=== PATIENT | female | born 1960 | race Caucasian/White ===

== ENCOUNTER 2023-05-07 08:15 | Outpatient (CLI) | payer BC, SELFPAY | END 2023-05-07 08:16 | disposition home or self-care (01) | PROVIDERS: PCP Internal Medicine; Referring Provider Internal Medicine; Visit Provider Internal Medicine | DX: Z01.419 Encounter for gynecological examination (general) (routine) without abnormal findings (principal); K21.9 Gastro-esophageal reflux disease without esophagitis; Z13.6 Encounter for screening for cardiovascular disorders | CPT/HCPCS: 80053; 80061 ==

== ENCOUNTER 2023-06-28 01:18 | Emergency (ER) | payer BC, SELFPAY ==
[2023-06-28 01:30] VITALS: BP 124/86; PULSE 126; RESP 18; TEMP 36.6; O2SAT 99; BMI 31.3
--- NOTE | 2023-06-28 01:38 | ED_ITS ---
HPI - General Adult General Chief complaint: Unspecified Complaint, Adult Stated complaint: body aches, fever Time Seen by Provider: 06/28/23 01:38 History of Present Illness HPI narrative: 2d body aches, cold s/s, thinks she has a fever. seen kaley for achilles tendonitis last week and is on prednisone 62-year-old woman presenting to the emergency depart with concern of body aches and chills. This having some soreness under bilateral anterior ribs and then into back. Underlying history of fibromyalgia. Over the last couple of days has developed some body aches and some chills. Has not measured a fever but says that thought she was warm. Little over 2 days ago was bending over gardening and kept feeling rather lightheaded. Does not report palpitations or irregular heartbeats. Has been treating with ibuprofen. Not urinating very frequently she says that noting that typically would be urinating very frequently as she drinks lot of water. No dysuria. Says that ?I have had lot of urinary tract infections this does not hurt? notes her to be flushed in her face I agree. Related Data Home Medications Medication Instructions Recorded Confirmed betamethasone, augmented 0.05 % topical 04/25/23 06/19/23 topical ointment cyclobenzaprine 10 mg tablet 10 mg PO .PRN 04/25/23 06/19/23 loratadine 10 mg tablet (Allergy 10 mg PO QDAY 04/25/23 06/19/23 Relief (loratadine)) meloxicam 15 mg tablet 15 mg PO DAILY 04/25/23 06/19/23 Previous Rx's Medication Instructions Recorded estradiol 10 mcg vaginal tablet 10 mcg vaginal .TIW #90 tabs 04/25/23 lisinopril 10 mg tablet 10 mg PO DAILY #90 tabs 04/25/23 pantoprazole 40 mg tablet,delayed 40 mg PO QDAY #90 tabs 04/25/23 release (Protonix) amitriptyline 25 mg tablet 25 mg PO QHS #90 tabs 07/11/23 Allergies Allergy/AdvReac Type Severity Reaction Status Date / Time latex Allergy thrush Verified 06/19/23 09:38 Review of Systems Status of ROS: Reports: 6 or more systems reviewed and unremarkable except as noted in History and below [facility] Medical History Achilles tendinitis ?M76.60 - Achilles tendinitis, unspecified leg (ICD-10) GERD (gastroesophageal reflux disease) ?K21.9 - Gastro-esophageal reflux disease without esophagitis (ICD-10) Fibromyalgia ?M79.7 - Fibromyalgia (ICD-10) Post menopausal problems ?N95.9 - Unspecified menopausal and perimenopausal disorder (ICD-10) Social History What is your current living situation?: I presently have a place to live Problems where you live: no known problems In the past 12 months, utilities in danger of being shut off: no In past 12 months, lack of transportation kept you from medical appts, meetings, work, or getting things needed for daily living: no In the past 12 mos, have been you worried that your food would run out before you had money to buy more?: never true In the past 12 mos, the food you bought just didn't last and you didn't have money to buy more?: never true Smoking Status: Never smoker How often do you have a drink containing alcohol: never AUDIT-C Alcohol total score: 0 Non-prescribed substance use: denies use How often does anyone, including family, friends and others, physically hurt you : never How often does anyone, including family, friends and others, insult or talk down to you: never How often does anyone, including family, friends and others, threaten you with harm: never How often does anyone, including family, friends and others, scream or curse at you: never Little interest or pleasure in doing things: not at all Feeling down, depressed, or hopeless: not at all Exam Narrative: Exam Narrative: Generally flushed in her face. Skin otherwise warm and dry. Seems a little tired. Sounds congested in the nasopharynx. Right TM seems a little full of fluid point of erythema centrally. Left TM unremarkable. Sore to palpation of the maxillary sinuses. Extraocular movements are full without pain. Extremities well perfused without edema. Heart in elevated rate and regular rhythm. Abdomen is soft nontender. Lungs are clear. Const: Vital Signs, click to edit/add: Vital Signs - 24 hr 06/28/23 01:30 Temperature 97.8 F Pulse Rate [Pulse Oximeter] 126 H Respiratory Rate 18 Blood Pressure [Ri ght Upper Arm] 124/86 Pulse Oximetry 99 Oxygen Delivery Me thod Room Air Documenting provider has reviewed patient's vital signs: yes Course Vital Signs Vital signs: Initial Vital Signs Temperature 97.8 F 06/28/23 01:30 Temperature Source Temporal Artery Scan 06/28/23 01:30 Pulse Rate 126 H 06/28/23 01:30 Respiratory Rate 18 06/28/23 01:30 Blood Pressure 124/86 06/28/23 01:30 Blood Pressure Mean 98 06/28/23 01:30 Blood Pressure Position Sitting 06/28/23 01:30 Pulse Oximetry 99 06/28/23 01:30 Oxygen Delivery Method Room Air 06/28/23 01:30 Vital Signs Temperature 97.8 F 06/28/23 01:30 Pulse Rate 126 H 06/28/23 01:30 Respiratory Rate 18 06/28/23 01:30 Blood Pressure 124/86 06/28/23 01:30 Pulse Oximetry 99 06/28/23 01:30 Oxygen Delivery Method Room Air 06/28/23 01:30 Temperature 97.8 F 06/28/23 03:04 Pulse Rate 99 06/28/23 03:04 Respiratory Rate 18 06/28/23 03:04 Blood Pressure 127/84 06/28/23 03:04 Pulse Oximetry 99 06/28/23 03:03 Oxygen Delivery Method Room Air 06/28/23 03:03 Medications Administered Medications: Discontinued Medications Generic Name Dose Route Start Last Admin Trade Name Freq PRN Reason Stop Dose Admin Sodium Chloride 1,000 mls @ 1,000 mls/hr 06/28/23 01:58 06/28/23 02:38 0.9 % Sodium Chloride 1000 Ml IV 06/28/23 02:57 Infused .Q1H ONE Infusion Pseudoephedrine HCl 60 mg 06/28/23 01:58 06/28/23 02:14 Pseudoephedrine Hcl 30 Mg Tablet PO 06/28/23 01:59 60 mg ONCE ONE Administration Medical Decision Making MDM Narrative Medical decision making narrative: I would screen for influenza and COVID considering community prevalence. Will triple swab. Otherwise seems to have some degree of a sinusitis. Will monitor for arrhythmia as well. Discussed and she feels that would benefit from some IV fluids. Decongestant Normal saline. Triple swab is negative On reassessment looks improved. Less flushed. Seems to have more energy. See patient discharge plan for more discussion Lab Data Lab results reviewed: Yes I reviewed the patient's lab results Labs: Lab Results 06/28/23 Range/Units 01:30 SARS-CoV-2 (PCR) Negative SARS-CoV-2 (Negative) Influenza Type A (PCR) Negative PCR FLU A (Negative) Influenza Type B (PCR) Negative PCR FLU B (Negative) RSV (PCR) Negative PCR RSV (Negative) Discharge Plan Discharge Clinical Impression: URI (upper respiratory infection), Sinusitis, Viral illness Patient Disposition: Home w/ Parent or Adult Condition: Improved Additional Instructions: Continue to focus on hydration. 2-3 L of water/liquid intake daily should be enough Consider pseudoephedrine for drying and congestion. I prefer the 12 hour formulation. I understand you have some nasal spray decongestant. You might try that for a few days. Menthol vapors might be helpful Consider sleeping under the midst of a cool mist humidifier. Neti pot and nasal saline rinses might also be useful Can continue with your meloxicam or substitute ibuprofen. Prednisone from [facility] Prescriptions: No Action betamethasone, augmented 0.05 % ointment topical cyclobenzaprine 10 mg tablet 10 mg PO .PRN meloxicam 15 mg tablet 15 mg PO DAILY loratadine [Allergy Relief (loratadine)] 10 mg tablet 10 mg PO QDAY estradiol 10 mcg tablet 10 mcg vaginal .TIW Qty: 90 3RF lisinopril 10 mg tablet 10 mg PO DAILY Qty: 90 3RF pantoprazole [Protonix] 40 mg tablet,delayed release (DR/EC) 40 mg PO QDAY Qty: 90 3RF amitriptyline 25 mg tablet 25 mg PO QHS Qty: 90 2RF Follow Up/Referrals: Moises Chiu MD [Primary Care Provider] - Stand Alone Forms: [employer] Info Instructions
[2023-06-28] MEDS: 0.9 % SODIUM CHLORIDE 1000 ml 1,000 ML IV (02:07)
[2023-06-28 02:11] LABS: PCR FLU A Negative PCR FLU A (Negative); PCR FLU B Negative PCR FLU B (Negative); PCR RSV Negative PCR RSV (Negative); SARS PCR* Negative SARS-CoV-2 (Negative)
[2023-06-28] MEDS: PSEUDOEPHEDRINE HCL 30 MG TABLET 60 MG PO (02:14)
[2023-06-28 03:03] VITALS: BP 127/84; PULSE 99; RESP 18; TEMP 36.6; O2SAT 99
[2023-06-28 03:04] VITALS: BP 127/84; PULSE 99; RESP 18; TEMP 36.6
== END 2023-06-28 03:04 | disposition home or self-care (01) ==
PROVIDERS: Emergency Provider Family Medicine; PCP Internal Medicine
DX: J06.9 Acute upper respiratory infection, unspecified (principal); J32.9 Chronic sinusitis, unspecified
CPT/HCPCS: 87631; 99283; 99284; A9270; J7030

== ENCOUNTER 2024-05-01 08:10 | Outpatient (CLI) | payer BC, SELFPAY | END 2024-05-01 08:11 | disposition home or self-care (01) | LOC: NFLDREF 05-12 14:51 | PROVIDERS: PCP Internal Medicine; Referring Provider Internal Medicine; Visit Provider Internal Medicine | DX: Z13.220 Encounter for screening for lipoid disorders (principal); Z13.228 Encounter for screening for other metabolic disorders | CPT/HCPCS: 80053; 80061 ==

== ENCOUNTER 2024-07-24 14:55 | Outpatient (CLI) | payer BC, SELFPAY ==
--- NOTE | 2024-07-24 15:00 | CRLHL7_ITS ---
For Patients: As a result of the Century Cures Act, medical imaging exams and procedure reports are released immediately into your electronic medical record. You may view this report before your referring provider. If you have questions, please contact your health care provider. INDICATION: BILATERAL SCREENING MAMMOGRAM, ASYMPTOMATIC 63 Y/O FEMALE COMPARISON: None TECHNIQUE: CC and MLO views were obtained. These mammographic images have been obtained using full-field digital technique. These mammographic images were interpreted with the benefit of computer aided detection and tomosynthesis. BREAST COMPOSITION: There are scattered areas of fibroglandular density. FINDINGS: No suspicious findings. ASSESSMENT: BI-RADS 1 Negative RECOMMENDATION: Annual screening mammogram. A lay language report of this examination will be provided to the patient. Dictated by: Felipe Li MD @ 08/01/2024 11:11:26 (Electronically Signed)
== END 2024-07-24 14:56 | disposition home or self-care (01) ==
LOC: MAMMO 14:56
PROVIDERS: PCP Internal Medicine; Visit Provider Internal Medicine
DX: Z12.31 Encounter for screening mammogram for malignant neoplasm of breast (principal)
CPT/HCPCS: 77063; 77067